=== PATIENT | male | born 1950 | race Caucasian/White ===

== ENCOUNTER → 2024-08-01 07:02 | Outpatient (REF) | payer MEDICARE, OTHER, SELFPAY | LOC: RCS 07:02 | PROVIDERS: ATTENDING PHYSICIAN Student in an Organized Health Care Education/Training Program; FAMILY PHYSICIAN Family Medicine | DX: I77.810 Thoracic aortic ectasia (principal) | CPT/HCPCS: 93306 ==

== ENCOUNTER → 2024-11-27 06:44 | Outpatient (REF) | payer MEDICARE, OTHER, SELFPAY | LOC: RAD 06:44 | PROVIDERS: ATTENDING PHYSICIAN Nurse Practitioner; FAMILY PHYSICIAN Family Medicine | DX: I73.9 Peripheral vascular disease, unspecified (principal) | CPT/HCPCS: 93922; 93925 ==

== ENCOUNTER → 2024-12-10 09:35 | Outpatient (REF) | payer MEDICARE, OTHER, SELFPAY ==
[2024-12-10 11:40] LABS: Blood Urea Nitrogen 28 mg/dl (9-20); Calcium 9.2 mg/dl (8.4-10.2); Carbon Dioxide 29 mmol/L (22-30); Chloride 106 mmol/L (98-107); Glucose 106 mg/dl (70-99); Sodium 143 mmol/L (135-145); eGFR 57.65
== END ==
LOC: REG 09:35
PROVIDERS: ATTENDING PHYSICIAN Surgery Vascular Surgery
DX: I87.1 Compression of vein (principal)
CPT/HCPCS: 36415; 80048

== ENCOUNTER → 2024-12-16 06:55 | Outpatient (REF) | payer MEDICARE, OTHER, SELFPAY | LOC: RAD 06:55 | PROVIDERS: ATTENDING PHYSICIAN Surgery Vascular Surgery; FAMILY PHYSICIAN Family Medicine | DX: I87.1 Compression of vein (principal) | CPT/HCPCS: 74174; Q9967 ==

== ENCOUNTER 2025-07-12 08:58 | Outpatient (RCR) | payer MEDICARE, OTHER, SELFPAY | END 2025-07-12 23:59 | disposition home or self-care (01) | LOC: RPT 08:58 | PROVIDERS: ATTENDING PHYSICIAN Family Medicine | DX: R29.898 Other symptoms and signs involving the musculoskeletal system (principal); R26.2 Difficulty in walking, not elsewhere classified; M62.81 Muscle weakness (generalized); M25.552 Pain in left hip; Z73.6 Limitation of activities due to disability; M79.605 Pain in left leg | CPT/HCPCS: 97110; 97162 ==

== ENCOUNTER → 2025-07-22 06:53 | Outpatient (REF) | payer MEDICARE, OTHER, SELFPAY ==
[2025-07-22 09:02] LABS: Blood Urea Nitrogen 44 mg/dl (9-20); Calcium 9.5 mg/dl (8.4-10.2); Carbon Dioxide 28 mmol/L (22-30); Chloride 105 mmol/L (98-107); Glucose 90 mg/dl (70-99); HDL Cholesterol 54 mg/dl; LDL Cholesterol, Calculated 28 mg/dl; Potassium 5.2 mmol/L (3.5-5.1); Sodium 137 mmol/L (135-145); Very Low Density Lipoprotein 17 mg/dl (0-30); eGFR 41.52
== END ==
LOC: RAD 06:53
PROVIDERS: ATTENDING PHYSICIAN Surgery Vascular Surgery; FAMILY PHYSICIAN Family Medicine; REFERRING PHYSICIAN Student in an Organized Health Care Education/Training Program
DX: I73.9 Peripheral vascular disease, unspecified (principal); I25.810 Atherosclerosis of coronary artery bypass graft(s) without angina pectoris
CPT/HCPCS: 36415; 80048; 80061; 93922; 93978

== ENCOUNTER 2025-08-09 07:34 | Outpatient (RCR) | payer MEDICARE, OTHER, SELFPAY | END 2025-08-09 23:59 | disposition home or self-care (01) | LOC: RPT 07:34 | PROVIDERS: ATTENDING PHYSICIAN Family Medicine | DX: R29.898 Other symptoms and signs involving the musculoskeletal system (principal); R26.2 Difficulty in walking, not elsewhere classified; M62.81 Muscle weakness (generalized); M25.552 Pain in left hip; M79.605 Pain in left leg; Z73.6 Limitation of activities due to disability | CPT/HCPCS: 97110 ==